=== PATIENT | female | born 1975 | race Caucasian/White ===

== ENCOUNTER 2024-01-04 13:58 | Outpatient (CLI) | payer OTHER, SELFPAY ==
--- NOTE | 2024-01-04 14:00 | US_ITS ---
Patient: ABEBA MODI Facility:?[facility] Patient ID:?[id number] Site Patient ID:?[id number]. Site :?[id number] Study:?US-Pelvis TA/TV-01/04/2024 2:56:22 PM Ordering Physician:IVONE Final Report: CLINICAL HISTORY: Heavy periods TECHNIQUE: Real time, perez scale images were acquired of the pelvis using a transabdominal and transvaginal approach. Color Doppler analysis was performed of the ovaries. FINDINGS: The uterus measures 9.2 x 4.9 x 6.4 centimeters. Multiple fundal fibroids present largest fibroid measures 3 x 2.4 x 2.8 centimeters, intramural. There is a intramural fibroid in the right fundus measuring 2.4 x 2.1 x 2.1 centimeters and additional left fundal There is a IUD in the endometrial cavity. The portion of the IUD is slightly tilted/angulated towards the left aspect of the uterus Left ovary measures 4.1 x 2.1 x 1.9 centimeters and appears unremarkable with normal blood flow on color Doppler. Right ovary is also unremarkable measuring 2.5 x 1.9 x 1.6 centimeters and unremarkable as well. Intramural fibroid measuring 2.2 x 2.1 x 2 centimeters IMPRESSION: 1. Endometrium is not measured on this exam however measures approximately 8 millimeters. IUD in the endometrial cavity. The T portion near the fundus is tilted slightly angulated towards the left 2. Three intramural fibroids largest is right fundal measuring 3 centimeters. Dictated by Rachel Vegas MD @ 01/07/2024 7:41:42 AM Signed by:?Rachel Vegas MD @01/07/2024 7:41:42 AM (Electronic Signature)
== END 2024-01-04 13:59 | disposition home or self-care (01) ==
LOC: US 14:00
PROVIDERS: PCP Physician Assistant Medical; Visit Provider Physician Assistant Medical
DX: N92.0 Excessive and frequent menstruation with regular cycle (principal); D25.1 Intramural leiomyoma of uterus
CPT/HCPCS: 76830; 76856

== ENCOUNTER 2024-02-15 09:36 | Outpatient (CLI) | payer OTHER, SELFPAY | END 2024-02-15 09:37 | disposition home or self-care (01) | LOC: NFLDREF 02-18 08:06 | PROVIDERS: PCP Physician Assistant Medical; Referring Provider Physician Assistant Medical; Visit Provider Physician Assistant Medical | DX: Z00.00 Encounter for general adult medical examination without abnormal findings (principal); E78.5 Hyperlipidemia, unspecified; F90.9 Attention-deficit hyperactivity disorder, unspecified type; N92.6 Irregular menstruation, unspecified; Z13.1 Encounter for screening for diabetes mellitus; Z13.0 Encounter for screening for diseases of the blood and blood-forming organs and certain disorders involving the immune mechanism | CPT/HCPCS: 80053; 80061; 84443 ==

== ENCOUNTER 2024-06-06 13:58 | Outpatient (CLI) | payer OTHER, SELFPAY ==
--- NOTE | 2024-06-06 14:00 | CRLHL7_ITS ---
For Patients: As a result of the Century Cures Act, medical imaging exams and procedure reports are released immediately into your electronic medical record. You may view this report before your referring provider. If you have questions, please contact your health care provider. BILATERAL SCREENING MAMMOGRAM WITH COMPUTER-AIDED DETECTION AND TOMOSYNTHESIS TECHNIQUE: CC and MLO views were obtained. These mammographic images have been obtained using full-field digital technique. These mammographic images were interpreted with the benefit of computer-aided detection. Breast Tomosynthesis was used in this interpretation. COMPARISON FILM: 02/22/22, 06/18/19, 05/22/17. FINDINGS: The breasts are heterogeneously dense, which may obscure small masses IMPRESSION: There is no radiographic evidence for malignancy. ASSESSMENT: BI-RADS Category 2: Benign RECOMMENDATION: Routine screening mammogram in 1 year. A lay language report of this examination will be provided to the patient. Syed Eduardo M.D. Diagnostic Radiologist [email or web address] RADHA/Dictated by: Syed Eduardo MD @ 06/07/2024 1:31:00 PM (Electronically Signed)
== END 2024-06-06 13:59 | disposition home or self-care (01) ==
LOC: MAMMO 13:59
PROVIDERS: PCP Physician Assistant Medical; Visit Provider Physician Assistant Medical
DX: Z12.31 Encounter for screening mammogram for malignant neoplasm of breast (principal); R92.2 Inconclusive mammogram
CPT/HCPCS: 77063; 77067

== ENCOUNTER 2024-11-11 16:22 | Outpatient (CLI) | payer MEDICAID, SELFPAY ==
[2024-11-13 16:13] LABS: HPV Source Cervix; HPV, High Risk by TMA Not Detected
== END 2024-11-11 16:23 | disposition home or self-care (01) ==
PROVIDERS: PCP Physician Assistant Medical; Visit Provider Physician Assistant Medical
DX: Z11.3 Encounter for screening for infections with a predominantly sexual mode of transmission (principal); Z11.51 Encounter for screening for human papillomavirus (HPV)
CPT/HCPCS: 87491; 87591; 87624; 87625; 88141; 88142